=== PATIENT | female | born 1975 | race Caucasian/White ===

== ENCOUNTER 2020-08-18 16:23 | Outpatient (CLI) | payer OTHER | END 2020-08-18 16:24 | disposition home or self-care (01) | LOC: CSHLAB 16:23 | PROVIDERS: ATTEND Obstetrics & Gynecology | DX: Z01.812 Encounter for preprocedural laboratory examination (principal); Z20.822 Contact with and (suspected) exposure to COVID-19; D25.9 Leiomyoma of uterus, unspecified | CPT/HCPCS: 84703; 85027; 86850; 86900; 86901; 87635; U0003; U0005 ==

== ENCOUNTER 2020-08-23 08:23 | Observation (INO) | payer OTHER ==
[2020-08-18 18:42] LABS: Mean Corpuscular HGB CONC 31.4 g/dL (32.0-36.0); Mean Corpuscular Hemoglobin 26.6 pg (27.0-33.0); Mean Corpuscular Volume 84.7 fl (81.6-98.3); Mean Platelet Volume 9.9 fl (7.4-10.4); Platelet Count 286 10x3/uL (150-450); RBC Distribution Width 17.3 % (11.5-14.5); Red Blood Cell (RBC) Count 4.51 10x6/uL (3.90-5.03); White Blood Cell (WBC) Count 6.3 10x3/uL (3.5-10.5)
[2020-08-18 18:55] LABS: BHCG - Serum Negative (NEGATIVE); Pregs Control Background? CLEAR/WHITE (CLR/WHITE); Pregs Control Bar Appear? YES (CONTROL BAR)
[2020-08-19 01:50] LABS: SARS-CoV-2 PCR by NAA Not Detected (NotDetected)
[2020-08-22 15:34] VITALS: BMI 30.1
[2020-08-23] MEDS ORDERED: Lidocaine 1% MPF 2 ML VIAL ONE (08:48)
[2020-08-23] MEDS ORDERED: CeleCOXIB 100 MG CAP ONE (08:48)
[2020-08-23] MEDS ORDERED: Gabapentin 300 MG CAP ONE (08:48)
[2020-08-23] MEDS ORDERED: Famotidine/PF 20 mg/2ml Vial ONE (08:49)
[2020-08-23] MEDS ORDERED: Fentanyl 100 MCG/2 ML VIAL ONE ×2 (09:55→11:22)
[2020-08-23] MEDS ORDERED: PROPOFOL 20 ML ONE (09:56)
[2020-08-23] MEDS ORDERED: Rocuronium Bromide 10 MG/ML (10ML VIAL) ONE (09:56)
[2020-08-23] MEDS ORDERED: EPINEPHrine 1 MG/ML AMP ONE (09:58)
[2020-08-23] MEDS ORDERED: Bupivacaine PF 0.5% 30 ML VIAL ONE (09:58)
[2020-08-23] MEDS ORDERED: Midazolam HCl 2 mg/2 ml Vial ONE (10:20)
[2020-08-23] MEDS ORDERED: Glycopyrrolate 0.2 MG/ML 5 ML SYRINGE ONE (12:26)
[2020-08-23] MEDS ORDERED: Ketorolac Tromethamine 30 MG/ML VIAL ONE (13:49)
[2020-08-23] MEDS ORDERED: Morphine 4 MG/ML VIAL ONE (13:50)
[2020-08-23] MEDS ORDERED: Morphine 2 MG/ML VIAL SLOW IVP PRN (15:02)
[2020-08-23] MEDS ORDERED: diphenhydrAMINE 25 MG CAP PO PRN (15:02)
[2020-08-23] MEDS ORDERED: Promethazine HCl 25 MG/ML VIAL IM PRN (15:02)
[2020-08-23] MEDS ORDERED: traMADol HCl 50 MG TAB PO PRN (15:02)
[2020-08-23] MEDS ORDERED: Zolpidem Tartrate 5 MG TAB PO PRN (15:02)
[2020-08-23] MEDS ORDERED: Albuterol Sulfate 2.5 mg/3 ml Neb NEB PRN (15:02)
[2020-08-23] MEDS ORDERED: Acetaminophen 325 MG TAB PO PRN (15:02)
[2020-08-23] MEDS ORDERED: Ondansetron PF 4 MG/2 ML Vial IVP PRN (15:02)
[2020-08-23] MEDS ORDERED: GenTeal Tears Severe Dry Eye GEL 10 G R EYE PRN (16:59)
[2020-08-23] MEDS: Ketorolac Tromethamine 30 MG/ML VIAL IVP SCH (20:22)
[2020-08-23] MEDS: Lactated Ringer's 1,000 ML IV SCH ×2 (23:04→23:21)
[2020-08-24] MEDS: Ketorolac Tromethamine 30 MG/ML VIAL IVP SCH (02:04)
[2020-08-24] MEDS: Simethicone Chewable 80 MG TAB PO PRN ×2 (02:04→08:44)
[2020-08-24] MEDS: traMADol HCl 50 MG TAB PO PRN ×2 (03:42→10:21)
[2020-08-24] MEDS: Lactated Ringer's 1,000 ML IV SCH (06:39)
[2020-08-24 07:16] LABS: Anion Gap 15 mmol/L (10-20); BUN (Urea Nitrogen) 9 mg/dL (7.0-18.7); Calc. Creatinine Clearance 130 mL/min (70-130); Calcium 8.3 mg/dL (7.8-10.44); Carbon Dioxide 20 mmol/L (22-29); Chloride 110 mmol/L (98-107); Glucose 97 mg/dL (70-105); Potassium 3.8 mmol/L (3.5-5.1); Sodium 141 mmol/L (136-145)
[2020-08-24 08:01] LABS: Hemoglobin 10.4 g/dL (12.0-15.5); Mean Corpuscular HGB CONC 32.4 g/dL (32.0-36.0); Mean Corpuscular Hemoglobin 26.5 pg (27.0-33.0); Mean Corpuscular Volume 81.9 fl (81.6-98.3); Mean Platelet Volume 9.5 fl (7.4-10.4); Platelet Count 254 10x3/uL (150-450); RBC Distribution Width 15.5 % (11.5-14.5); Red Blood Cell (RBC) Count 3.92 10x6/uL (3.90-5.03); White Blood Cell (WBC) Count 8.3 10x3/uL (3.5-10.5)
[2020-08-24] MEDS ORDERED: Enoxaparin Sodium 40 MG/0.4 ML SYRINGE SC SCH (09:00)
[2020-08-24 11:33] VITALS: BP 110/60; TEMP 97.5
[2020-08-29] MEDS ORDERED: Ibuprofen 800 MG TAB PO SCH (09:00)
== END 2020-08-24 13:10 | disposition home or self-care (01) ==
LOC: CSHSDC 08:23 → CSHPP 14:56 → INTOOBSV 14:56
PROVIDERS: ADMIT Obstetrics & Gynecology; ATTEND Obstetrics & Gynecology
PROC: 0UT94ZZ Resection of Uterus, Percutaneous Endoscopic Approach (ICD-10-PCS; principal; 2020-08-24)
PROC: 0UT74ZZ Resection of Bilateral Fallopian Tubes, Percutaneous Endoscopic Approach (ICD-10-PCS; 2020-08-24)
DX: D25.9 Leiomyoma of uterus, unspecified (principal); N72 Inflammatory disease of cervix uteri; D64.9 Anemia, unspecified; Z79.899 Other long term (current) drug therapy
CPT/HCPCS: 36415; 80048; 84703; 85027; 86850; 86900; 86901; 87635; 88307; 96372; 96374; 96376; G0378; J0171; J0690; J1650; J1885; J2250; J2270; J2704; J3010; S0020; S0028; U0003; U0005

== ENCOUNTER 2022-11-14 09:43 | Outpatient (CLI) | payer OTHER | END 2022-11-14 09:44 | disposition home or self-care (01) | LOC: CSHMAMMO 09:43 | PROVIDERS: ATTEND Family Medicine | DX: Z12.31 Encounter for screening mammogram for malignant neoplasm of breast (principal) | CPT/HCPCS: 77063; 77067 ==

== ENCOUNTER 2023-12-05 11:37 | Outpatient (CLI) | payer OTHER | END 2023-12-05 11:38 | disposition home or self-care (01) | LOC: CSHMAMMO 11:37 | PROVIDERS: ATTEND Family Medicine | DX: Z12.31 Encounter for screening mammogram for malignant neoplasm of breast (principal) | CPT/HCPCS: 77063; 77067 ==